=== PATIENT | male | born 1955 | race Caucasian/White ===

== ENCOUNTER 2019-01-18 09:50 | Emergency (ER) | payer MEDICARE, OTHER ==
[2019-01-18] MEDS ORDERED: CHERATUSSIN PO (10:33)
[2019-01-18] MEDS ORDERED: DOXYCYC MONO100 M2 PO (10:33)
[2019-01-18 10:50] VITALS: BP 126/77
== END 2019-01-18 10:51 | disposition home or self-care (01) ==
LOC: ED 09:50
DX: J06.9 Acute upper respiratory infection, unspecified (principal); E11.9 Type 2 diabetes mellitus without complications; I10 Essential (primary) hypertension; I25.2 Old myocardial infarction